=== PATIENT | female | born 1995 | race Hispanic/Latino ===

== ENCOUNTER 2018-03-03 08:45 | Day surgery (SDC) | payer OTHER, MEDICAID ==
[2018-03-03] MEDS ORDERED: HEPARIN/NS 5000 UNIT/500ML(CATH LAB) 1,000 ML IR ONE (10:18)
[2018-03-03] MEDS ORDERED: HEPARIN 10,000 UNITS/10 ML ONE (10:18)
[2018-03-03] MEDS ORDERED: XYLOCAINE 1%/ EPI 1:100,000 INFILTRATI ONE (10:19)
[2018-03-03] MEDS ORDERED: ANCEF/STERILE WATER 2 GM/20 ML 2 GM/20 ML SYRINGE IV ONE (10:19)
[2018-03-03 10:33] LABS: Basophils % (Auto) 0.3 % (0.0-1.8); Eosinophils # (Auto) 0.2 K/mm3 (0.0-0.4); Eosinophils % (Auto) 2.7 % (0.0-4.3); Hematocrit 46.6 % (30.3-42.9); Hemoglobin 15.8 gm/dl (10.1-14.3); Lymphocytes # (Auto) 0.5 K/mm3 (1.2-5.4); Lymphocytes % (Auto) 7.5 % (13.4-35.0); Mean Corpuscular HGB Conc 34 % (30-34); Mean Corpuscular Hemoglobin 30 pg (28-32); Mean Corpuscular Volume 88 fl (79-97); Monocytes # (Auto) 0.3 K/mm3 (0.0-0.8); Monocytes % (Auto) 5.4 % (0.0-7.3); Platelet Count 281 K/mm3 (140-440); Red Blood Count 5.28 M/mm3 (3.65-5.03)
[2018-03-03 10:42] LABS: INR 0.87 (0.87-1.13)
[2018-03-03] MEDS ORDERED: NACL 0.9% 500 ML 500 ML IV SCH (11:00)
[2018-03-03] MEDS: VERSED ONE ×2 (11:04→11:09)
[2018-03-03] MEDS: SUBLIMAZE ONE ×2 (11:05→11:09)
[2018-03-03] MEDS: XYLOCAINE 2% INFILTRATI ONE ×2 (11:10→11:12)
[2018-03-03] MEDS ORDERED: TORADOL ONE (11:29)
--- NOTE | 2018-03-03 11:51 | Short Stay Summary ---
Short Stay Documentation Date of service: 03/03/18 - History Principal diagnosis: venous insufficiency bilateral lower extremities H&P: obtained from office - Allergies and Medications Current Medications: Allergies No Known Allergies Allergy (Verified 03/03/18 09:33) Active Medications Sodium Chloride (Nacl 0.9% 500 Ml) 500 mls @ 50 mls/hr IV DIRECT YURI - Brief post op/procedure progress note Date of procedure: 03/03/18 Pre-op diagnosis: venous insufficiency bilateral lower extremities Post-op diagnosis: same Procedure: Bilateral lower extremity venous stenting and venoplasty Anesthesia: local Surgeon: TRAVON CATES Estimated blood loss: minimal Pathology: none Condition: stable - Disposition Condition at discharge: Good Disposition: [id number] TO HOME OR SELFCARE Short Stay Discharge Plan Activity: advance as tolerated Weight Bearing Status: Weight Bear as Tolerated Diet: regular Wound: keep clean and dry, per your surgeon's advice Follow up with: JOSE GUADALUPE GREEN MD [Primary Care Provider] - 7 Days
--- NOTE | 2018-03-03 12:00 | Operative Report ---
Operative Report Operative Report: Exam: Bilateral lower extremity venogram, intravascular ultrasound, bilateral lower extremity venous stent placement Clinical Indication: Venous hypertension despite treatment of her superficial veins Date: 03/03/2018 Procedure: Following an explanation of the risks, benefits and alternatives; written informed consent was obtained. The patient was brought to the angiographic suite and placed in supine position on the examination table. Her legs were prepped from mid thigh to groin bilaterally. Initial ultrasound evaluation demonstrated patent femoral veins bilaterally. 1% lidocaine was used for anesthesia. Under ultrasound guidance, the right femoral vein was cannulated with a 7 cm 18- gauge needle. A 0.035 guidewire was advanced centrally. The needle was removed and a 5 [place] sheath placed. Access to the left femoral vein was obtained in a similar fashion and a 5 [place] sheath placed in the left femoral vein. Venography was performed through bilateral sheaths which demonstrated a widely patent and easily placed stents. Inferior to the previously placed stents in the common iliac veins, there is a step-off with a reduction in venous caliper area decision as to further evaluate with intravascular ultrasound. Both sheaths were upsized to 10 [place] sheaths over the guidewire. Intravascular ultrasound was then performed from the IVC to the right sheath insertion site. This demonstrates widely patent IVC. Previously placed stents are well opposed with 125 mm of cross-sectional area. Below this area of the stent, the diameter drops to 50 mm in cross sectional area. Intravascular ultrasound was then performed from the IVC to the left sheath insertion site. The previously placed common iliac vein stent is widely patent. The cross-sectional diameter is 125 mm. Below the stent, the diameter drops to 74 m and cross-sectional area. A decision was made to treat these 2 areas with stenting. A 16 X 90 mm Wallstent was advanced through the right sheath and deployed to exclude the lesion. The stent was seated using a 14 mm x 40 mm [place] balloon insufflated to 4 lior multiple locations. Post stent placement imaging demonstrated reduction of the stenosis to less than 10%. A 16 X 90 mm Wallstent was then advanced through the left sheath and deployed to exclude the lesion. The stent was seated using a 14 mm x 40 mm [place] balloon insufflated to 4 lior at multiple locations. Post stent deployment imaging and venoplasty imaging demonstrated reduction of the stenosis to less than 10%. At this point, the catheters, guidewires and sheaths were removed and hemostasis achieved using manual compression. Sterile compression dressings were then placed The patient tolerated the procedure well. There were no immediate post procedure complications. Conscious sedation was performed under the guidance of radiologic nursing. Continuous cardiopulmonary monitoring was utilized. Impression: 1) Bilateral lower extremity venogram through sheaths placed in bilateral femoral veins demonstrating stenosis within bilateral external iliac veins below previously placed stents of greater than 50%. 2) Intravascular ultrasound performed in the IVC, right common iliac vein, right external iliac vein and right common femoral vein, left common iliac vein, left external iliac vein and left common femoral vein demonstrating 80% stenosis within the right external iliac vein and 70% stenosis within the left external iliac vein. 3) Treatment of these lesions with stenting and venoplasty as described extending from the right common iliac vein to the right external iliac vein and extending from the left common iliac vein to the left external iliac vein.
[2018-03-03 15:00] VITALS: BP 109/66
== END 2018-03-03 13:35 | disposition home or self-care (01) ==
LOC: CATHLABREC 08:45
PROVIDERS: ATTEND Radiology Diagnostic Radiology
DX: I87.2 Venous insufficiency (chronic) (peripheral) (principal); Z79.01 Long term (current) use of anticoagulants
CPT/HCPCS: 36415; 37238; 37239; 37252; 37253; 75822; 76937; 85025; 85610; 85730; 99156; 99157; C1725; C1753; C1769; C1876; C1887; C1894; J0690; J1644; J1885; J2250; J3010; J7040; Q9967